=== PATIENT | female | born 1985 | race Caucasian/White ===

== ENCOUNTER 2023-10-12 18:13 | Emergency (ER) | payer OTHER, SELFPAY ==
[2023-10-12 18:34] VITALS: BP 130/87; PULSE 90; RESP 18; TEMP 36.8; O2SAT 100
--- NOTE | 2023-10-12 19:59 | ED.GENADULT ---
HPI - General Adult General Chief complaint: Unspecified Stated complaint: bat exposure Time Seen by Provider: 10/12/23 19:33 History of Present Illness HPI narrative: Patient 38-year-old female who presents emergency department with chief complaint of exposure to bat patient reports that the noticed a bat in the bedroom they are unsure if there was any bite exposure. Patient currently has no complaints Related Data Allergies Allergy/AdvReac Type Severity Reaction Status Date / Time Sulfa (Sulfonamide Allergy Hives Verified 10/12/23 19:45 Antibiotics) Review of Systems Review of Systems: A 10 system review of systems was completed on the patient and is negative except for what is stated in the HPI. Nursing and ancillary documentation was reviewed. Exam Narrative: GENERAL: Well-appearing, well-nourished, and in no acute distress. HEAD: Normocephalic, atraumatic. EYES: PERRLA and EOMI. ENT: Nares clear, no rhinorrhea or epistaxis. Mucous membranes moist. NECK: Supple. CHEST: Clear to auscultation. No respiratory distress. HEART: Regular rate and rhythm. No murmur heard. Normal peripheral pulses. ABDOMEN: Soft, nontender, nondistended, normal active bowel sounds. EXTREMITIES: Normal range of motion. No edema. SKIN: Warm, dry, no rash. NEURO: No focal deficits. Alert and oriented x3. PSYCH: Normal mood and affect. Course Vital Signs Vital signs: Vital Signs Temperature 36.8 C 10/12/23 18:34 Pulse Rate 90 10/12/23 18:34 Respiratory Rate 18 10/12/23 18:34 Blood Pressure 130/87 10/12/23 18:34 Pulse Oximetry 100 10/12/23 18:34 Temperature 36.8 C 10/12/23 18:34 Pulse Rate 90 10/12/23 18:34 Respiratory Rate 18 10/12/23 18:34 Blood Pressure 130/87 10/12/23 18:34 Pulse Oximetry 100 10/12/23 18:34 Medical Decision Making [facility] Narrative Medical decision making narrative: differential diagnosis includes bat bite, exposure to bat, given there is a possibility for exposure to a bat the patient will undergo rabies vaccine given the immunoglobulin and the initial dose of the vaccine was given a prescription for the course of the rabies vaccine Vital Signs Vital Signs: Vital Signs Temperature 36.8 C 01/24/24 18:34 Pulse Rate 90 10/12/23 18:34 Respiratory Rate 18 10/12/23 18:34 Blood Pressure 130/87 10/12/23 18:34 Pulse Oximetry 100 10/12/23 18:34 Temperature 36.8 C 10/12/23 18:34 Pulse Rate 90 10/12/23 18:34 Respiratory Rate 18 10/12/23 18:34 Blood Pressure 130/87 10/12/23 18:34 Pulse Oximetry 100 10/12/23 18:34 Discharge Plan Discharge Clinical Impression: Exposure to bat without known bite Patient Disposition: Home, Self-Care Condition: Stable Instructions: Antibiotic Form, Rabies Vaccine (By injection), Rabies Immune Globulin (By injection), Rabies (ED) Additional Instructions: You were given prescriptions for the additional doses of the rabies vaccine you should have the 2nd dose on October 15 3rd dose on October 19 and the 4th dose on October 26 you will be contacted by Cindy Og from the hospital to arrange your additional doses Follow-up/Referrals: Blayne,Hayden Felix MD [Primary Care Provider] - Time of Disposition: 20:07
[2023-10-12] MEDS: RABIES VACCINE (RABAVERT) 2.5 UNITS VIAL IM (20:43)
[2023-10-12] MEDS: RABIES IMMUNE GLOBULIN/PF 1,500 UNITS/5 ML VIAL 1380 UNITS IM (20:45)
== END 2023-10-12 21:30 | disposition home or self-care (01) ==
PROVIDERS: Emergency Provider Emergency Medicine; PCP Family Medicine
DX: Z29.14 Encounter for prophylactic rabies immune globulin (principal); Z20.3 Contact with and (suspected) exposure to rabies; W55.89XA Other contact with other mammals, initial encounter; Z23 Encounter for immunization
CPT/HCPCS: 90471; 90675; 96372; 99283; 90375

== ENCOUNTER 2023-10-26 07:30 | Outpatient (RCR) | payer OTHER, SELFPAY | END 2024-01-13 23:59 | disposition home or self-care (01) | LOC: ANHVASCINF 07:30 | PROVIDERS: PCP Family Medicine; Visit Provider Emergency Medicine | DX: Z29.14 Encounter for prophylactic rabies immune globulin (principal); Z20.3 Contact with and (suspected) exposure to rabies | CPT/HCPCS: 90471; 90675 ==